=== PATIENT | female | born 1970 ===

== ENCOUNTER 2024-08-14 08:28 | Outpatient (AMB) | payer OTHER, SELFPAY ==
--- NOTE | 2024-08-14 08:31 | A.OFFVIS_ITS ---
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 Patient was referred by [place] with MRI results of right knee. Patient reports she tripped over a breakfast tray as she was entering her classroom, causing her to fall and injuring her right knee and right shoulder. She attended PT which caused an increase of swelling. Her pain is located at the lateral side and below her kneecap. Denies numbness or tingling. Difficulty with stair use and swelling presents with activity. She continues to work with current restrictions: limited movement, allow her to sit, she is unable to lift anything over 5 lbs, no prolong computer use, and no stairs. MRI of right knee shows: 1. Poorly organized meniscal tearing of the body and posterior horn and medial meniscus with a probable superior medially subluxed meniscal fragment.- At least partly age related due to osteophytes below 2 There is smaller to severe chondromalacia of the medial compartmental cartilage with prominent medial osteophytes 3. Grade 1 MCL sprain- probably industrial but minor 4. Focal fissuring and chondromalacia of the patella cartilage apex.- Possibly industrial but lacks medial correction. Allergies acetaminophen [From Percocet] Allergy (Verified 08/14/24 08:51) Itchy oxycodone [From OxyContin] Allergy (Verified 08/14/24 08:51) itchy lavendar Allergy (Uncoded 08/14/24 08:51) headaches Medication List - Last Reconciled 08/14/24 by Justina Orr PA-C amlodipine 10 mg PO DAILY cyclobenzaprine 10 mg PO BEDTIME diclofenac sodium 75 mg PO BID escitalopram oxalate mg PO hydrochlorothiazide 25 mg PO DAILY meclizine 25 mg PO Q12H PRN HPI HPI DONATION SPECIALIST- Right knee injury DOI 04/25/24: Details: 53-year-old female presents to the office today for an injury she sustained to her right knee during a workman's comp injury on 04/25/2024. She was at work and tripped over a bag with handles and as she was walking she caught her foot on the handle and fell landing on her right side injuring the right shoulder and right knee. She needed assistance getting off the floor and was brought to the ED by her son. She was seen at [facility] who sent her to PT and she was attending but began developing swelling. She c/o locking sensation and pain with stairs. She states the pain travels around the knee. No sensation of instability. Prior to the injury she has been able to perform all activities without limitations. Since the time of the injury she has been working with limitations such as sitting. 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 No open wounds or abrasions. No joint effusion. She has full range of motion with significant crepitus over the lateral aspect of the knee. She has medial-sided joint tenderness with a positive Elisabeth's. Calf supple and nontender neurovascularly intact. Office Procedures AMB Joint Injection/Aspiration Joint Injection/Aspiration Primary Site: right knee Prep: site was prepped using aseptic technique, ethochloride spray was applied and injection warnings given Injected: 80 mg of, DepoMedrol, with 8 mL of, 1% plain lidocaine and in the joint Approach Used: anterolateral Procedure: The patient tolerated the procedure well and there was some relief with the local anesthesia Coding 30443 - Glenohumeral/Tronchanteric Bursa/Intraarticular Procedure code (CPT) selection complete Results Reviewed Results Reviewed: X-rays of the right knee obtained in the office today and reviewed by me show medial compartment and patellofemoral compartment arthritis Assessment & Plan Assessment & Plan (1) Patellofemoral arthritis of right knee: Code(s): M17.11 - Unilateral primary osteoarthritis, right knee Category: Medical (2) Tear of meniscus of right knee as current injury: Code(s): S83.206A - Unspecified tear of unspecified meniscus, current injury, right knee, initial encounter Category: Medical Plan It appears as though she has an acute on chronic injury of the right knee. She was performing all activities without discomfort or limitations prior to her injury and now she is limited with activities that cause her discomfort. At this time I recommend a steroid injection in the right knee which she tolerated well. This will help with her pain and inflammation allowing her to perform physical therapy to work on strengthening exercises. While her MRI does show a meniscus tear this may be an acute on chronic tear given she is symptomatic and prior to injury she was not. She was given a prescription for Celebrex to take twice a day for 2 weeks to help with her discomfort. I would like to see her back in 8 weeks for re-evaluation. She will continue her current work limitations of alternate sitting to standing as needed and limit stair climbing as needed. Orders: Orders XR knee RT 3V Today M17.11 - Unilateral primary osteoarthritis, right knee Medications: New celecoxib (Celebrex) 200 mg PO BID 60 caps 3RF 30 days Coding Level of Care Code New Pt Level 3 (20349) Complex EM visit Add On G2211 Diagnoses Patellofemoral arthritis of right knee M17.11 Tear of meniscus of right knee as current injury S83.206A CPT Codes Coding - Joint 7: 06731 - Glenohumeral/Tronchanteric Bursa/Intraarticular ([id number])
--- OUTSIDE RECORDS SUMMARY | 2024-08-14 08:44 | XMS_ITS | Data Portability ---
Author Organization [place] - [facility], Allergy Address [address] [address] Care Team Providers Care Data Modeling Architect Name Role Phone PASQUALE NOVAK Primary Care Provider Assessment No assessment recorded. Plan of Treatment Reminders Order Date Submit Date Provider Last Modified By Organization Details Last Modified Time Details Appointments None recorded. Lab None recorded. Referral None recorded. Procedures None recorded. Surgeries None recorded. Imaging MRI, brain + internal auditory canal, w/wo contrast - MRI, BRAIN + INTERNAL AUDITORY CANAL, W/WO CONTRAST 2023 024 [email or web address] [facility] ([facility]), [address] [place], [address], 5 11:24:43 Medication Orders None recorded. Patient TargetsNo targets recorded. Patient InstructionsNo instructions recorded. Reason for Referral None Reported. Results Created Date Observation Date Name Description Value Unit Range Abnormal Flag Note LastModifiedBy Organization Detail LastModifiedTime 03/22/20 24 audio gram No observ ation record ed. BARCODE Not Available 2023 12:17:12 Result Notes None recorded. Problems Name Problem SNOMED Code Status Onset Date Resolution Date Notes Provider Name and Address Organization Details Recorded Time Benign paroxysma l positiona l vertigo 413961068 Active 2016 Benign paroxysma l vertigo, left ear; Note: Date Diagnosed : 08/30/2016 3:32 PM (H81.12) Not Available [facility] 4 02:40:28 Dizziness and giddiness 600525889 Active 2016 Dizziness and giddiness ; Note: Date Diagnosed : 08/30/2016 3:29 PM (R42) Not Available [facility] 4 02:40:25 Sensorine ural hearing loss of bilateral ears 727935287 Active 2016 Sensorine ural hearing loss, bilateral ; Note: Date Diagnosed : 08/30/2016 3:29 PM (H90.3) Not Available [facility] 4 02:40:21 Bilateral tinnitus 91248688739 02 Active 2016 Tinnitus, bilateral ; Note: Date Diagnosed : 08/30/2016 3:29 PM (H93.13) Not Available [facility] 4 02:40:21 Sensorine ural hearing loss in left ear 61563244174 109 Active 2023 Kezia mathis [place] - [facility] 4 14:01:30 Tinnitus of left ear 04742729421 06 Active 2023 JYOTHI COLON MD [address] [place] [address],[place] [address], [place], [address] , [place] - [facility] 4 14:55:42 Referred otalgia of left ear 49592339527 52827 Active 2023 JYOTHI COLON MD [address] [place] [address],[place] [address], [place], [address] , [place] - [facility] 4 14:56:16 Problem Notes None recorded. Procedures Surgical History Date Name Laterality Status Provider Name and Address Organization Details Recorded Time 03/21/20 24 Air & Speech Audio with Tymps - 55042, 53967 & 88286 completed Kezia Jara [place] - [facility] 03/21/2024 14:00:59 biopsy of ovary completed Elodia Winston [place] - [facility] 03/21/2024 14:26:29 section completed Elodia Winston [place] - [facility] 03/21/2024 14:26:35 Hysterectomy completed Elodia Winston [place] - [facility] 03/21/2024 14:26:41 Imaging Results Imaging Date Name Status LastModified by Organiz ation Details LastModified Time 03/22/2024 audiogram completed BAR[facility] Information no t available 03/22/2024 12:17:12 Procedure Notes None recorded. Medical Equipment None Reported. Allergies Allergen ID Allergen Name Allergen Category Reaction Reaction Severity Criticality Documentation Date Start Date Code Code System Note Provider Name and Address Organization Details Recorded Time 148567 amoxicill in medicatio n Not available Not available Not available 03/21/2024 723 RxNorm Elodia mathis [facility] 4 14:27:38 013871 Keflex medicatio n Not available Not available Not available 03/21/2024 17709 7 RxNorm Elodia mathis [facility] 4 14:27:43 299209 acetamino phen / oxycodone medicatio n Not available Not available Not available 03/21/2024 79360 3 RxNorm Elodia mathis [facility] 4 14:27:49 294504 vitamin B12 medicatio n Not available Not available Not available 03/21/2024 27984 RxNorm Elodia mathis [facility] 4 14:27:55 Medications Name Sig Start Date Stop Date Status Note LastModified by Organization Details LastModified Time azithromycin 250 mg tablet TAKE 2 TABLETS BY MOUTH TODAY, THEN TAKE 1 TABLET DAILY FOR 4 DAYS DIRECTED active Not Available Not Available No t Available doxycycline monohydrate 100 mg tablet TAKE 1 TABLET BY MOUTH TWICE A DAY FOR 10 DAYS active Not Available Not Available No t Available meclizine 25 mg tablet TAKE 1 TABLET BY MOUTH EVERY 12 HOURS NEEDED FOR 30 DAYS active Not Available Not Available No t Available amlodipine 10 mg tablet TAKE 1 TABLET BY MOUTH EVERY DAY FOR 90 DAYS active Not Available Not Available No t Available lisinopril 5 mg tablet TAKE 1 TABLET BY MOUTH EVERY DAY FOR 90 DAYS active Not Available Not Available No t Available hydrochlorothi azide 25 mg tablet TAKE 1 TABLET BY MOUTH EVERY DAY FOR 90 DAYS active Not Available Not Available No t Available methylpredniso lone 4 mg tablets in a dose pack TAKE 6 TABLETS ON DAY 1 DIRECTED ON PACKAGE AND DECREASE BY 1 TAB EACH DAY FOR A TOTAL OF 6 DAYS active Not Available Not Available No t Available escitalopram 10 mg tablet TAKE 1 & 1/2 TABLETS BY MOUTH DAILY active Not Available Not Available No t Available Vitals Date Recorded Body height Body weight Provider Name and Address Organization Details Last Updated DateTime 03/21/2024 149.86 cm 23186.59 g Elodia Winston [place] - [facility] 03/21/2024 14:42:33 Social History None recorded. Functional Status None recorded. Mental Status None recorded. Family History Nothing Reported. Medical History Condition Response Anxiety Y Hypertension Y Depression Y Gynecological HistoryNo gynecological history recorded. Obstetrics History GPAL:G 0 P 0 0 0 0 Past Encounters Encounter ID Performer Location Encounter Start Date Encounter Closed Date Diagnosis/Indication Diagnosis SNOMED-CT Code Diagnosis ICD10 Code Diagnosis Note [id number] JYOTHI COLON MD [facility] [address] [place] [address] 03/21/2024 13:27:27 03/21/2024 14:58:41 Sensorineural hearing loss in left ear [id number] 9109 H90.42 Audiologic al evaluation results:Ri t ear:{{Norm al* Normal through 2 kHz Mild M oderate Mo derately-s evere Gianna re Profoun d}} {{hearing* hearing. sloping to a mild slopi ng to a moderate s loping to moderately severe slo ping to severe slo ping to profound f lat high frequency low frequency mid frequency cookie bite berry curve}} {{with* se nsorineura l hearing loss with condu ctive hearing loss with mixed hearing loss with}} {{excellen t* good fa ir poor no measurable }} word recognitio n.Left ear:{{Norm al Normal through 2 kHz Mild M oderate Mo derately-s evere Gianna re Profoun d Normal through 4 kHz#}} {{hearing hearing. s loping to a mild slopi ng to a moderate* sloping to moderately severe slo ping to severe slo ping to profound f lat high frequency low frequency mid frequency cookie bite berry curve}} {{with sen sorineural hearing loss with* cond uctive hearing loss with mixed hearing loss with}} {{excellen t* good fa ir poor no measurable }} word recognitio n. Tympanomet ry:Right Ear:{{Type A* Type As Type Ad Type C Type C, shallow & rounded Ty pe B Type B with large volume Cou ld not maintain a hermetic seal}}Left Ear:{{Type A Type As* Type Ad Type C Type C, shallow & rounded Ty pe B Type B with large volume Cou ld not maintain a hermetic seal}}Ros ent's audiogram is demonstrat ing an asymmetric sensorineu ral hearing loss and tinnitus affecting the {{right ear greater than left left ear greater than right*}}. This is enough of an asymmetry to warrant retrocochl ear workup. Recommend MRI scan of the brain and internal auditory canals with gadolinium . We will arrange this for the patient. If the scan is negative I will let the patient know via {{telephon e message po rtal massage*}} . If there are any significan t abnormalit ies, we can arrange telehealth visit to discuss the results. Tinnitus of left ear 406 7041600 106 H93.12 Referred o talgia of left ear [id number] 637897 H92.02 M26.622 M79.11 The patient complains of intermitte nt {{right-si ded left-s ided* bila teral}} periauricu lar {{discomfo rt* pressu re sensation} }. Physical exam reveals no identifiab le source of these symptoms involving the auricle, external auditory canal, or tympanic membrane. Audiometri c testing and tympanomet ry are similarly unrevealin g. Furthermor e, examinatio n was positive for crepitus and tenderness of the {{right le ft* bilate ral}} jaw joint and fer-TMJ musculatur e. The patient's periauricu lar {{discomfo rt* pressu re sensation} } is most likely consistent with intermitte nt inflammati on of the jaw joint or spasm of the surroundin g musculatur e. This is likely exacerbate d by the {{missing teeth* den margret clenching and grinding g um chewing}} . I recommende d the patient use light massage, warm compresses and anti-infla mmatories for symptomati c management . Stressed chewing evenly on both sides of the mouth to keep from overworkin g the jaw joint. Use soft food diet as needed. Jaw Joint Program informatio n sheet was shared. If this treatment plan is ineffectiv e, recommend follow up with their dentist. Referral to physical therapist who specialize s in TMJ disorders {{could also be considered * was provided}} . Health Concerns Section Related Observation LastModified by Organization Detai ls LastModified Time None Recorded Concern Status LastModified by Organization Details LastModified Time None Recorded Advance Directives Directive None Recorded Payers Insurance Date Sequence Insurance Name Policy Number Policy Kirkpatrick Covered Member ID Kirkpatrick Member ID Guarantor Name 03/21/[address] [place] [address] [id number] Shanta Zeng [id number] Shanta Zeng Notes Date Note Type Note Provider Name and Address Organization Details Recorded Time 03/21/2024 text/html Patient comes in today for evaluation of left periauricular pain. She has been having symptoms for about a month. Pain is in the preauricular area but can also go up into her temporal region as well as down into the jawline and neck. It is better now than what it was a month ago. Patient notes that her symptoms wax and wane, and can be exacerbated by talking and chewing. No discharge or bleeding from the ear. Patient was seen at her primary care physician's office and given 2 courses of antibiotics. Unfortunately she had nausea and vomiting with some of the antibiotics. She was given a third course of antibiotics but she has not taken it.Patient was seen in our office back in 2017. She had audiometric testing showing a mildly asymmetric sensorineural hearing loss affecting the left ear greater than right. It was not enough asymmetry at that point to warrant retrocochlear workup. She has asymmetric tinnitus affecting the left ear greater than right JYOTHI COLON MD [address] [place] [address], [phone], [facility] - [facility] 03/21/2024 14:58:58 OBGyn Episode No OBEpisode recorded.
--- OUTSIDE RECORDS SUMMARY | 2024-08-14 08:44 | XMS_ITS | Clinical Summary ---
Author Organization [facility] [address] [facility] Address [address] [place] [address] Phone Care Team Providers Care Sales Expert Name Role Phone Kelechi Haney Primary Care Provider [phone] Allergies Active Allergy Reactions Criticality Noted Date Comments Amoxicillin 06/19/2024 Cyanocobalamin (Vitamin B12) 025 Cephalexin 06/19/2024 Oxycodone-Acetaminophen 06/19/2024 Medications escitalopram (LEXAPRO) 10 mg tablet 06/06/2024 Active hydroCHLOROthiazid e (HYDRODIURIL) 25 mg tablet 06/06/2024 Active lisinopriL (PRINIVIL,ZESTRIL) 5 mg tablet 06/06/2024 Active amLODIPine (NORVASC) 10 mg tablet 06/06/2024 Active Encounters Date Type Department Care Team Description 06/19/2024 Telephone Gastroenterology - [address] [phone] Anastasiia Yeboah MD from Last 3 Months Social History Tobacco Use Types Packs/Day Years Used Date Smoking Tobacco: Never Assessed Comments Unknown Sex and Gender Information Value Date Recorded Sex Assigned at Not on file Legal Sex Female 3:44 PM EDT Gender Identity Not on file Sexual Orientation Not on file Plan of Treatment Upcoming Encounters Date Type Department Care Team (Late st Contact Info) Description 09/18/2024 8:00 AM EDT Appointment [facility] [address] [place] [address] Momo Bautista MD [address] [id number] Health Maintenance Due Date Last Done Comments Breast Cancer Screening 1968 DTaP,Tdap,and Td Vaccines (1 - Tdap) 01/01/1988 Hepatitis B Vaccines (1 of 3 - 19+ 3-dose series) 01/01/1988 Cervical Cancer Screening: P ap Smear 1989 Pneumococcal Vaccine: 50+ Ye ars (1 of 1 - PCV) 2018 Zoster Vaccines (1 of 2) 2018 COVID-19 Vaccine ( - 2023-2 5 season) 2023 Colorectal Cancer Screening: Colonoscopy 01/24/2024 Depression Screening 01/24/2024 HIV Screening 01/24/2024 Hepatitis C Screening 01/24/2024 Social Influencers of Health Screening 01/24/2024 Influenza Vaccine (Season Ended) 2024 HIB Vaccines Aged Out No longer eligi ble based on patient's age to complete this topic HPV Vaccines Aged Out No longer eligi ble based on patient's age to complete this topic Hepatitis A Vaccines Aged Out No long er eligible based on patient's age to complete this topic IPV Vaccines Aged Out No longer eligi ble based on patient's age to complete this topic MMR Vaccines Aged Out No longer eligi ble based on patient's age to complete this topic Meningococcal ACWY Vaccine Aged Out N o longer eligible based on patient's age to complete this topic Meningococcal B Vaccine Aged Out No l onger eligible based on patient's age to complete this topic Pneumococcal Vaccine: Pediat rics (0 to 5 Years) and At-Risk Patients (6 to 64 Years) Aged Out No longer eligible b ased on patient's age to complete this topic RSV Immunization Patients Un tree 20 months Aged Out No longer eligible b ased on patient's age to complete this topic Varicella Vaccines Aged Out No longer eligible based on patient's age to complete this topic Insurance Care Teams Sales Expert Relationship Specialty Start Date End Date Kelechi Haney PA PCP - General Internal Medicine 06/19/24
[2024-08-14 08:53] VITALS: BMI 35.5
== END 2024-08-14 09:58 | disposition home or self-care (01) ==
LOC: HO.HOS 08:29
PROVIDERS: Visit Provider Physician Assistant
DX: M17.11 Unilateral primary osteoarthritis, right knee (principal); S83.203A Other tear of unspecified meniscus, current injury, right knee, initial encounter
CPT/HCPCS: 20610; 99203

== ENCOUNTER → 2024-08-14 08:31 | Outpatient (BNV) | payer OTHER, SELFPAY | PROVIDERS: Visit Provider Radiology Diagnostic Radiology | DX: M17.11 Unilateral primary osteoarthritis, right knee (principal) | CPT/HCPCS: 73562 ==

== ENCOUNTER 2024-08-14 09:27 | Outpatient (REF) | payer OTHER, SELFPAY ==
--- NOTE | ~2024-08-14 | XR_ITS ---
CLINICAL HISTORY: M17.11 - Unilateral primary osteoarthritis, right knee AP standing view bilateral knees Two-view right knee Comparison: None Findings: Bones intact. No dislocations. Moderate narrowing of the right medial knee compartment. Mild narrowing of the left medial knee compartment. Osteophytes are present within the bilateral knees, most pronounced within the right medial knee compartment. There is a mild leg length discrepancy. The right medial tibial plateau is 1 cm superior to the left. No joint effusion. No radiopaque foreign body. IMPRESSION: 1. Moderate osteoarthritis of the right knee. Mild osteoarthritis of the left knee. 2. Mild leg length discrepancy. This document has been electronically signed by: Vivien Murrieta MD on 08/14/2024 14:33:35
--- OUTSIDE RECORDS SUMMARY | 2024-08-15 10:09 | XMS_ITS | Clinical Summary ---
Author Organization [facility] 299 [facility] Address [address] [place] [address] Phone Care Team Providers Care Crime Victim Specialist Name Role Phone Kelechi Haney Primary Care Provider [phone] Allergies Active Allergy Reactions Criticality Noted Date Comments Amoxicillin 06/19/2024 Cyanocobalamin (Vitamin B12) 025 Cephalexin 06/19/2024 Oxycodone-Acetaminophen 06/19/2024 Medications escitalopram (LEXAPRO) 10 mg tablet 06/06/2024 Active hydroCHLOROthiazid e (HYDRODIURIL) 25 mg tablet 06/06/2024 Active lisinopriL (PRINIVIL,ZESTRIL) 5 mg tablet 06/06/2024 Active amLODIPine (NORVASC) 10 mg tablet 06/06/2024 Active Encounters Date Type Department Care Team Description 06/19/2024 Telephone Gastroenterology - [address] [phone] Anastasiia Ybeoah MD from Last 3 Months Social History [...] Info) Description 09/18/2024 8:00 AM EDT Appointment [facility]oscopy [address] [place] [address] Momo Bautista MD [address] [phone] Health Maintenance Due Date Last Done Comments [...] to complete this topic Insurance Care Teams Crime Victim Specialist Relationship Specialty Start Date End Date Kelechi Haney PA PCP - General Internal Medicine 06/19/24
== END 2024-08-14 09:28 | disposition home or self-care (01) ==
LOC: HO.HOSX 09:27
PROVIDERS: Visit Provider Physician Assistant
DX: M17.11 Unilateral primary osteoarthritis, right knee (principal); S83.206A Unspecified tear of unspecified meniscus, current injury, right knee, initial encounter
CPT/HCPCS: 20610; 73562; 99202; J1010; J2003

== ENCOUNTER 2024-10-08 15:07 | Outpatient (AMB) | payer OTHER, SELFPAY ==
--- NOTE | 2024-10-08 15:09 | MHC.OFFVIS ---
Intake Visit Reasons: OV-Right knee injury WC DOI 04/25/24 Intake Note: Shanta 53 yr old female presents today for her right knee W/C injury follow up visit from DOI 04/25/24. States last injection from DOS 08/14/24 provided relief and would like to repeat injection 3 moths from last one. Allergies acetaminophen (From Percocet) Allergy (Verified 10/08/24 15:14) Itchy oxycodone (From OxyContin) Allergy (Verified 10/08/24 15:14) itchy lavendar Allergy (Uncoded 10/08/24 15:14) headaches Medication List - Last Reconciled 10/08/24 by Justina Orr PA-C amlodipine 10 mg PO DAILY celecoxib (Celebrex) 200 mg PO BID 30 days cyclobenzaprine 10 mg PO BEDTIME diclofenac sodium 75 mg PO BID escitalopram oxalate mg PO hydrochlorothiazide 25 mg PO DAILY meclizine 25 mg PO Q12H PRN HPI HPI OV-Right knee injury DOI 04/25/24: Details: 53-year-old female returns to the office today for a follow-up right knee status post injection. She states she has been working with physical therapy and she has noticed some improvement in her symptoms and daily activities. She does have some occasional discomfort in the knee but overall improving. 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 No open wounds or abrasions. No joint effusion. She has full range of motion with significant crepitus over the lateral aspect of the knee. Mild discomfort with patellar grind. Calf supple and nontender neurovascularly intact. Assessment & Plan Assessment & Plan (1) Patellofemoral arthritis of right knee: Code(s): M17.11 - Unilateral primary osteoarthritis, right knee Category: Medical (2) Tear of meniscus of right knee as current injury: Code(s): S83.206A - Unspecified tear of unspecified meniscus, current injury, right knee, initial encounter Category: Medical Plan I reassured the patient the injection was used to help reduce the inflammation so she could begin physical therapy and have positive results. I am optimistic she will continue to improve with physical therapy. I did give her a prescription for ibuprofen 800 mg to take 3 times a day for the next 2 weeks to help with acute flare-ups. She will see me back in 8 weeks to re-evaluate, sooner if needed. Coding Level of Care Code Est Pt Level 3 (42879) Complex EM visit Add On G2211 Diagnoses Patellofemoral arthritis of right knee M17.11 Tear of meniscus of right knee as current injury S83.206A
--- OUTSIDE RECORDS SUMMARY | 2024-10-08 15:48 | XMS_ITS | Clinical Summary ---
Author Organization [address] Address [address] [place] [address] Phone Care Team Providers Care Senior Net Software Developer Name Role Phone Kelechi Haney Primary Care Provider [phone] Allergies Active Allergy Reactions Criticality Noted Date Comments Amoxicillin 06/19/2024 Cyanocobalamin (Vitamin B12) 025 Cephalexin 06/19/2024 Oxycodone-Acetaminophen 06/19/2024 Medications escitalopram (LEXAPRO) 10 mg tablet 5 Active hydroCHLOROthia zide (HYDRODIURIL) 25 mg tablet 5 Active lisinopriL (PRINIVIL,ZESTR IL) 5 mg tablet 5 Active amLODIPine (NORVASC) 10 mg tablet 5 Active polyethylene glycol (Golytely) 236-22.74-6.74 -5.86 gram solution Take 4L by mouth once for one dose. May substitue any PEG. Starting at 6PM the night before your procedure drink 1 8oz glasses at your own pace until you complete half of the gallon. Finish 2nd half of the gallon 5 hours before your procedure. 4000 mL 5 Active bisacodyL (DULCOLAX) 5 mg EC tablet Take 2 tablets by mouth right before beginning bowel prep. See instructions provided by the office 2 tablet 5 Active Encounters Date Type Department Care Team Description 09/17/2024 Telephone Gastroenterology - [address] [place] [address] Momo Bautista MD Special Procedure R/S from Last 3 Months Social History Tobacco Use Types Packs/Day Years Used Date Smoking Tobacco: Never Assessed Comments Unknown Sex and Gender Information Value Date Recorded Sex Assigned at Not on file Legal Sex Female 3:44 PM EDT Gender Identity Not on file Sexual Orientation Not on file Plan of Treatment Upcoming Encounters Date Type Department Care Team ([facility] st Contact Info) Description 11/18/2024 2:[address] [facility] [address] [place] [id number] Momo Bautista MD [address] [facility] [address] [place] [address] Health Maintenance Due Date Last Done Comments Breast Cancer Screening 1968 DTaP,Tdap,and Td Vaccines (1 - Tdap) 01/01/1988 Hepatitis B Vaccines (1 of 3 - 19+ 3-dose series) 01/01/1988 Cervical Cancer Screening: P ap Smear 1989 Pneumococcal Vaccine: 50+ Ye ars (1 of 1 - PCV) 2018 Zoster Vaccines (1 of 2) 2018 COVID-19 Vaccine (2023-2 5 season) 2023 Colorectal Cancer Screening: Colonoscopy [...] 5 Years) and At-Risk Patients (6 to 49 Years) Aged Out No longer eligible b ased on patient's age to complete this topic RSV Immunization Patients Un tree 20 months Aged Out No longer eligible b ased on patient's age to complete this topic Varicella Vaccines Aged Out No longer eligible based on patient's age to complete this topic Insurance [facility] Care Teams Senior Net Software Developer Relationship Specialty Start Date End Date Kelechi Haney PA PCP - General Internal Medicine 06/19/24
--- OUTSIDE RECORDS SUMMARY | 2024-10-08 15:48 | XMS_ITS | Data Portability ---
Author Organization [place] - [facility], All[facility] Address [address] [address] Care Team Providers Care Medical Writer Name Role Phone PASQUALE NOVAK Primary Care [...] INTERNAL AUDITORY CANAL, W/WO CONTRAST 2023 024 [email or web address] [facility] ([facility]), [address] [place], [address], 5 11:24:43 Medication Orders None recorded. Patient [...] Time Benign paroxysma l positiona l vertigo 591530377 Active 2016 Benign paroxysma l vertigo, left ear; Note: Date Diagnosed : 08/30/2016 3:32 PM (H81.12) Not Available [facility] 4 02:40:28 Dizziness and giddiness 889553702 Active 2016 Dizziness and giddiness ; Note: Date Diagnosed : 08/30/2016 3:29 PM (R42) Not Available [facility] 4 02:40:25 Sensorine ural hearing loss of bilateral ears 216599192 Active 2016 Sensorine ural hearing loss, bilateral ; Note: Date Diagnosed : 08/30/2016 3:29 PM (H90.3) Not Available [facility] 4 02:40:21 Bilateral tinnitus 54244268006 02 Active 2016 Tinnitus, bilateral ; Note: Date Diagnosed : 08/30/2016 3:29 PM (H93.13) Not Available [facility] 4 02:40:21 Sensorine ural hearing loss in left ear 44125585036 109 Active 2023 Kezia mathis [place] - [facility] 4 14:01:30 Tinnitus of left ear 63465818497 06 Active 2023 JYOTHI COLON MD [address] [place] [address],[place] [address], [place], [address] , [place] - [facility] 4 14:55:42 Referred otalgia of left ear 34709781032 71898 Active 2023 JYOTHI COLON MD [address] [place] [address],[place] [address], [place], [address] , [place] - [facility] 4 14:56:16 Problem Notes None recorded. Procedures Surgical History Date Name Laterality Status Provider Name and Address Organization Details Recorded Time 03/21/20 24 Air & Speech Audio with Tymps - 14069, 78256 & 48215 completed Kezia Jara [place] - [facility] 03/21/2024 14:00:59 biopsy of ovary completed Elodia Winston [place] - [facility] 03/21/2024 14:26:29 section completed Elodia Winston [place] - [facility] 03/21/2024 14:26:35 Hysterectomy completed Elodia Winston [place] - [facility] 03/21/2024 14:26:41 Imaging Results None recorded. Procedure Notes None recorded. Medical Equipment None Reported. Allergies Allergen ID Allergen Name Allergen Category Reaction Reaction Severity Criticality Documentation Date Start Date Code Code System Note Provider Name and Address Organization Details Recorded Time 545216 amoxicill in medicatio n Not available Not available Not available 03/21/2024 723 RxNorm Elodia mathis, [place] - [facility] 4 14:27:38 782240 Keflex medicatio n Not available Not available Not available 03/21/2024 45350 7 RxNorm Elodia mathis, [place] - [facility] 4 14:27:43 629363 acetamino phen / oxycodone medicatio n Not available Not available Not available 03/21/2024 55702 3 RxNorm Elodia mathis, [place] - [facility] 4 14:27:49 392496 vitamin B12 medicatio n Not available Not available Not available 03/21/2024 75069 RxNorm Elodia mathis, [place] - [facility] 4 14:27:55 Medications Name Sig Start Date [...] Details Last Updated DateTime 03/21/2024 149.86 cm 94741.59 g Elodia Winston [place] - [facility] 03/21/2024 14:42:33 Social History None recorded. Functional Status None recorded. Mental Status None recorded. Family History Nothing Reported. Medical History Condition Response Depression Y Anxiety Y Hypertension Y Gynecological HistoryNo gynecological history recorded. Obstetrics History GPAL:G 0 P 0 0 0 0 Past Encounters Encounter ID Performer Location Encounter Start Date Encounter Closed Date Diagnosis/Indication Diagnosis SNOMED-CT Code Diagnosis ICD10 Code Diagnosis Note [id number] JYOTHI COLON MD [facility] [address] [address] 03/21/2024 13:27:27 03/21/2024 14:58:41 Sensorineural hearing loss in left ear [id number] 9109 H90.42 Audiologic al evaluation results:Ri ght ear:Normal hearing with excellent word recognitio n.Left ear:Normal through 4 kHz sloping to a moderate sensorineu ral hearing loss with excellent word recognitio n. Tympanomet ry:Right Ear:Type ALeft Ear:Type AsPatient' s audiogram is demonstrat ing an asymmetric sensorineu ral hearing loss and tinnitus affecting the left ear greater than right. This is enough of an asymmetry to warrant retrocochl ear workup. Recommend MRI scan of the brain and internal auditory canals with gadolinium . We will arrange this for the patient. If the scan is negative I will let the patient know via portal massage. If there are any significan t abnormalit ies, we can arrange telehealth visit to discuss the results. Tinnitus of left ear 008 5627920 106 H93.12 Referred o talgia of left ear 5227071268 707457 H92.02 M26.622 M79.11 The patient complains of intermitte nt left-sided periauricu lar discomfort . Physical exam reveals no identifiab le source of these symptoms involving the auricle, external auditory canal, or tympanic membrane. Audiometri c testing and tympanomet ry are similarly unrevealin g. Furthermor e, examinatio n was positive for crepitus and tenderness of the left jaw joint and fer-TMJ musculatur e. The patient's periauricu lar discomfort is most likely consistent with intermitte nt inflammati on of the jaw joint or spasm of the surroundin g musculatur e. This is likely exacerbate d by the missing teeth . I recommende d the patient use [...] therapist who specialize s in TMJ disorders could also be considered . Health Concerns Section Related Observation LastModified by Organization Detai ls LastModified Time None Recorded Concern Status LastModified by Organization Details LastModified Time None Recorded Advance Directives Directive None Recorded Payers Insurance Date Sequence Insurance Name Policy Number Policy Kirkpatrick Covered Member ID Kirkpatrick Member ID Guarantor Name 03/21/2024 1 [facility] [id number] 01 Shanta Zeng [id number] Shanta Zeng Notes Date Note Type Note [...] ear greater than right JYOTHI COLON MD [address] [place] [address], [place], [address], [facility] - [facility] 03/21/2024 14:58:58 OBGyn Episode No OBEpisode recorded.
== END 2024-10-08 15:33 | disposition home or self-care (01) ==
LOC: HO.HOS 15:08
PROVIDERS: Visit Provider Physician Assistant
DX: M17.11 Unilateral primary osteoarthritis, right knee (principal); S83.206A Unspecified tear of unspecified meniscus, current injury, right knee, initial encounter
CPT/HCPCS: 99213; G2211

== ENCOUNTER → 2024-10-08 15:07 | Outpatient (BNVA) | payer OTHER, SELFPAY | PROVIDERS: Visit Provider Physician Assistant | DX: Z04.2 Encounter for examination and observation following work accident (principal); M17.11 Unilateral primary osteoarthritis, right knee; S83.206A Unspecified tear of unspecified meniscus, current injury, right knee, initial encounter; X58.XXXA Exposure to other specified factors, initial encounter; Y93.9 Activity, unspecified; Y92.9 Unspecified place or not applicable; Y99.9 Unspecified external cause status | CPT/HCPCS: 99212 ==

== ENCOUNTER 2024-11-01 11:00 | Outpatient (RCR) | payer OTHER, SELFPAY ==
--- NOTE | 2024-09-27 15:04 | MHC.PT.EP ---
[facility] [place] Office [place] Office [place] Office [address] Alicja Haile [address] [phone] F: [phone] F: [phone] F: [phone] F: [phone] Physical Therapy Plan of Care Date of Evaluation: 09/27/24 Date of Surgery: Diagnosis: M17.11 Unilateral Primary OA, R knee, S83. 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 206A Unspecified tear of unspecified meniscus, current injury, right knee, initial encounter, Patellofemoral arthritis of R knee, tear of meniscus of right knee, as current injury, signed by COTY Orr 08/14/24 following history of fall with work related injury DOI 04/25/24. Pt had an orthopedic consult on 08/14/24, had xray>MRI, and received a knee injection with some reduction post injection reported. She notes was given a hinged knee brace (did not wear and has not been wearing all the time)- advised to bring next session. Pt AROM -5 to 100 degrees R knee. Poor SLR, poor tolerance for quad set, poor tolerance for R SL. Pt currently exhibiting antalgic gaiit, notes pain 0/10 sitting during subjective goes up as high as R knee 9/10 medial side of knee, intolerance for stairs (step to pattern), sleeping, walking, sitting, and driving. Pt will be seen in PT 2-3x/week for treatment of R knee x 4-6 weeks. Post initial she was educated re: ascending with L LE, descending with R LE to reduce stress which eased her sx, educated re: passive heel prop for knee extension aide, and benefits in ice for R knee. Pt notes no follow up for treatment of R shoulder at this time (states she called ortho and was given appt for 11/09/24 R knee and R shoulder sometime in November. Pt was not referred to PT for treatment of her shoulder at this time. Pt verbalized good carryover following education at time of evaluation. Frequency and Duration: The patient will be seen 2-3x/week x 4-6 weeks Short Term Goals: 1. Initiate HEP program. 2. Pt will initiate R knee extension to 0 degrees. 3. Pt will demonstrate R knee flexion to 120 degrees. 4. Pt will ascend/descend stairs step to with good dynamic balance. Residential Goals: 1. I HEP with good mechanics for self-care. 2. Pt will demonstrate strength R knee 5/5 globally. 3. Pt will ascend/descend stairs with good dynamic balance. 4. Pt will RTW with good joint protections/insight for HEP. 5. Pt will implement a walking routine with no evidence of knee instability. Treatment Plan: Modalities to reduce pain, spasms and effusion. Manual therapy to restore motion and function. Therapeutic exercise to improve strength and flexibility. Neuromuscular re-education for posture and balance. Therapeutic activities to return to functional activities of daily living. Electronically signed by: Diana Gutierrez, PT, DPT Please sign and return to therapist. Thank you for your referral.
--- NOTE | 2024-11-01 12:15 | MHC.PT.OD ---
[facility] [place] Office [place] Office [place] Office [address] Alicja Haile [address] [phone] F: [phone] F: [phone] F: [phone] F: [phone] Physical Therapy Daily Note Diagnosis: M17.11 Unilateral Primary OA, R knee, S83. 206A Unspecified tear of unspecfied meniscus, current injury, right knee, initial encounter, Patellofemoral arthritis of R knee, tear of meniscus of right knee, as current injury, signed by COTY Orr 08/14/24 Date of Surgery: Date of Evaluation: 09/27/24 Date of Treatment: 11/01/24 Treatments to Date: Cancellations to Date: No Shows to Date: Authorized Visits: 7 Insurance End Date: Precautions/ Contraindications:HTN Subjective: Pt cancelled appt earlier in the week, LM stating she was sick. Presents to the office, later stating she was not feeling it. Pt states since Monday > her R knee started killing her, not sure why. States she is unable to walk on it. Presents to office with antalgic gait no AD, no brace. Pain Score and Location: 8 R knee Objective Flowsheet: Tests & Measures AROM 60> AAROM 90 degrees flexion AROM ext -3 degrees ext Painful with bending sx MCL region L supra 41.5 cm jt line 40 cm, infra 37 cm R supra 42.0 jt line 40 cm, infra patella 38 jt line Poor tolerance for SLR, poor carryover of HEP shown Exercises Limited tolerance for NUSTEP, GENTLE FLEXION>EXT rom did ~4 minutes seat #17 then requested to stop due to sx Seated hamstring stretch in chair x 4R x 20 sec hold, isometric QS x 5 sec hold x 2 sets 10R, seated gastroc stretch, AAROM heel slides wit strap in supine reviewed to gentle tolerance, SLR into flexion x 10R (poor strength) poor tolerance for CKC task, poor AROM into knee extension. Passive knee ext with towel roll at end of session with ice. Encouragement to keep using ice and stretching, medication as prescribed. Modalities Assessment: 11/01/24: Pt has attended 7 sessions of PT since start of care on 09/27/24. Pt noted to cancel appt earlier in the week stating she was sick but then when presenting to the office states, I was not feeling it. Pt reports worsening R knee pain, I don't know what I did but I cant walk on it. I dont want to go back to work in pain. Pt rates her pain 8/10 today. Pt with antalgic gait, wtih limited tolerance for PT tasks. Pt scheduled for tentative appt for R knee in December. Pt also will be seen for R shoulder consultation with orthopedics next week. Pt states she will be away early next week and then leaving to travel to [place] for a week from Monday. 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 Pt currently OOW. Pt admits has not been icing her knee but notes has been taking 800mg twice daily. In general pt with limited tolerance for PT, limited HEP compliance shown through carryover of exercises. Pt advised to follow up with orthopedics re: plateaued status. Today AAROM 0 to 95, limited by pain. Pt encouraged to follow up with orthopedics due to limited gains. 10/29/24: Pt cancelled appt, sick on VM. PT Plan: Follow up with orthopedics due to limited progress/ Short Term Goals: 1. Initiate HEP program. 2. Pt will initiate R knee extension to 0 degrees. 3. Pt will demonstrate R knee flexion to 120 degrees. 4. Pt will ascend/descend stairs step to with good dynamic balance. Director Of Real Estate Goals: 1. I HEP with good mechanics for self-care. 2. Pt will demonstrate strength R knee 5/5 globally. 3. Pt will ascend/descend stairs with good dynamic balance. 4. Pt will RTW with good joint protections/insight for HEP. 5. Pt will implement a walking routine with no evidence of knee instability. Electronically signed by: Diana Gutierrez, PT, DPT
== END 2024-12-10 11:47 | disposition home or self-care (01) ==
LOC: HO.PTS 11:00
PROVIDERS: Visit Provider Physician Assistant
DX: M17.11 Unilateral primary osteoarthritis, right knee (principal); S83.206A Unspecified tear of unspecified meniscus, current injury, right knee, initial encounter
CPT/HCPCS: 97110; 97161

== ENCOUNTER 2024-11-20 08:34 | Outpatient (REF) | payer OTHER, SELFPAY ==
--- NOTE | ~2024-11-20 | XR_ITS ---
EXAMINATION: XR SHOULDER, RIGHT CLINICAL INFORMATION: M25.511 - Pain in right shoulder COMPARISON: None available. TECHNIQUE: AP external rotation, Grashey, scapular Y, and axillary views of the right shoulder. FINDINGS: Small marginal osteophyte is present involving the medial humeral head. No other degenerative changes are present. AC joint is intact. There is no dislocation. XR/XR shoulder RT min 2V IMPRESSION: Minimal degenerative change with marginal osteophyte osteophyte involving the medial humeral head. Electronically signed by: Thomas White MD 11/20/2024 09:53 AM EDT
--- OUTSIDE RECORDS SUMMARY | 2024-11-21 09:29 | XMS_ITS | Clinical Summary ---
Author Organization [facility] [address] [facility] Address [address] [place] [address] Phone Care Team Providers Care Canary Raiser Name Role Phone Kelechi Haney Primary Care Provider [phone] Allergies Active Allergy Reactions Criticality Noted Date [...] Team Description 09/17/2024 Telephone Gastroenterology - [address] [place] [address] Momo Bautista MD Special Procedure [...] patient's age to complete this topic Insurance [facility] Care Teams Canary Raiser Relationship Specialty Start Date End Date Kelechi Haney PA PCP - General Internal Medicine 06/19/24
== END 2024-11-20 08:35 | disposition home or self-care (01) ==
LOC: HO.HOSX 08:34
PROVIDERS: Visit Provider Physician Assistant
DX: M19.011 Primary osteoarthritis, right shoulder (principal); M75.81 Other shoulder lesions, right shoulder; M25.511 Pain in right shoulder; M79.89 Other specified soft tissue disorders
CPT/HCPCS: 20610; 73030; 99212; J1010; J2003

== ENCOUNTER 2024-11-20 09:40 | Outpatient (AMB) | payer OTHER, SELFPAY ==
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
[2024-11-20 09:59] VITALS: BMI 35.5
--- OUTSIDE RECORDS SUMMARY | 2024-11-20 10:29 | XMS_ITS | Clinical Summary ---
Author Organization [facility] [address] [facility] Address [address] [place] [address] Phone Care Team Providers Care Production Controller Name Role Phone Kelechi Haney Primary Care Provider [phone] Allergies Active Allergy Reactions Criticality Noted Date [...] by the office 2 tablet 5 Active polyethylene glycol (Golytely) 236-22.74-6.74 -5.86 gram solution Take 4L by mouth once for one dose. May substitue any PEG. Starting at 2PM the day before your procedure drink 1 8oz glasses at your own pace until you complete half of the gallon. Finish 2nd half of the gallon at 8PM. 4000 mL 5 Active bisacodyL (DULCOLAX) 5 mg EC tablet Take 2 tablets by mouth right before beginning bowel prep. See instructions provided by the office 2 tablet Active Encounters Date Type Department Care Team Description 09/17/2024 Telephone Gastroenterology - [address] [place] [address] Momo Bautista MD Special Procedure R/S from Last 3 Months Social History Tobacco Use Types Packs/Day Years Used Date Smoking Tobacco: Never Assessed Comments Unknown Sex and Gender Information Value Date Recorded Sex Assigned at Not on file Legal Sex Female 3:44 PM EDT Gender Identity Not on file Sexual Orientation Not on file Plan of Treatment Health Maintenance Due Date Last Done Comments [...] season) 2023 Colorectal Cancer Screening: Colonoscopy 01/24/2024 HIV Screening 01/24/2024 Hepatitis C Screening 01/24/2024 Social Influencers of Health Screening 01/24/2024 Depression Screening 04/03/2024 Influenza Vaccine (#1) 2024 HIB Vaccines Aged Out No longer [...] to complete this topic Insurance [facility] Care Teams Production Controller Relationship Specialty Start Date End Date Kelechi Haney PA PCP - General Internal Medicine 06/19/24
== END 2024-11-20 10:52 | disposition home or self-care (01) ==
LOC: HO.HOS 09:41
PROVIDERS: Visit Provider Physician Assistant
DX: M19.011 Primary osteoarthritis, right shoulder (principal); M75.81 Other shoulder lesions, right shoulder
CPT/HCPCS: 20610; 99213

== ENCOUNTER → 2024-11-20 09:42 | Outpatient (BNV) | payer OTHER, SELFPAY | PROVIDERS: Visit Provider Radiology Diagnostic Radiology | DX: M25.711 Osteophyte, right shoulder (principal) | CPT/HCPCS: 73030 ==

== ENCOUNTER 2024-11-29 11:34 | Outpatient (AMB) | payer OTHER, SELFPAY ==
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
[2024-11-29 11:42] VITALS: BMI 35.5
--- OUTSIDE RECORDS SUMMARY | 2024-11-29 12:36 | XMS_ITS | Clinical Summary ---
Author Organization [facility] 299 [facility] Address [address] [place] [address] Phone Care Team Providers Care Bluing Oven Tender Name Role Phone Kelechi Haney Primary Care Provider [phone] Allergies Active Allergy Reactions Criticality Noted Date [...] [address] [place] [address] Momo Bautista MD from Last 3 Months Social History [...] patient's age to complete this topic Insurance [facility] Care Teams Bluing Oven Tender Relationship Specialty Start Date End Date Kelechi Haney PA PCP - General Internal Medicine 06/19/24
== END 2024-11-29 12:28 | disposition home or self-care (01) ==
LOC: HO.HOS 11:34
PROVIDERS: Visit Provider Physician Assistant
DX: M17.11 Unilateral primary osteoarthritis, right knee (principal)
CPT/HCPCS: 99213; G2211

== ENCOUNTER → 2024-11-29 11:34 | Outpatient (BNVA) | payer OTHER, SELFPAY | PROVIDERS: Visit Provider Physician Assistant | DX: M17.11 Unilateral primary osteoarthritis, right knee (principal) | CPT/HCPCS: 99212 ==

== ENCOUNTER 2025-01-01 09:49 | Outpatient (AMB) | payer OTHER, SELFPAY ==
--- NOTE | 2025-01-01 09:55 | MHC.OFFVIS ---
Intake Visit Reasons: OV-Right shoulder injury WC DOI 04/25/24 Intake Note: Shanta is a 54 year old right hand dominant female who presents today for a follow up of her workers comp injury to her right shoulder, DOI 04/25/24. At her last visit on 11/20/24 she was given an injection, instructed to continue attending physical therapy and follow up in 6-8 weeks. Today patient reports she is dong well, states injection provided her with relief. Current work restrictions of no lifting pushing pulling or carrying greater than 5 lb, as well as Limiting stair use and walking. Allergies acetaminophen (From Percocet) Allergy (Verified 01/01/25 09:58) Itchy oxycodone (From OxyContin) Allergy (Verified 01/01/25 09:58) itchy lavendar Allergy (Uncoded 01/01/25 09:58) headaches Medication List - Last Reconciled 01/01/25 by Justina Orr PA-C amlodipine 10 mg PO DAILY escitalopram oxalate mg PO hydrochlorothiazide 25 mg PO DAILY ibuprofen 800 mg PO Q8H PRN 30 days lisinopril 5 mg PO DAILY meclizine 25 mg PO Q12H PRN HPI HPI OV-Right shoulder injury WC DOI 04/25/24: Details: 54-year-old female returns to the office today for a follow-up right shoulder workman's comp injury dated 04/25/2024. I saw her back on 11/24 her right shoulder and performed a steroid injection which she states was significantly helpful. She has not returned to physical therapy for the right shoulder but does notice she has decreased strength on the right side. This does continues to cause limitations with daily activities. She has continued working with restrictions in place. 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 She does have weakness and pain associated with empty can. Assessment & Plan Assessment & Plan (1) Tendinitis of right rotator cuff: Code(s): M75.81 - Other shoulder lesions, right shoulder Category: Medical Plan: A new order for physical therapy has been placed to work on strengthening exercises. She will continue with her current work restrictions and see me back in 6 weeks with anticipation of full duty no restrictions. Coding Level of Care Code Est Pt Level 3 (42090) Complex EM visit Add On G2211 Diagnoses Tendinitis of right rotator cuff M75.81
--- OUTSIDE RECORDS SUMMARY | 2025-01-01 10:46 | XMS_ITS | Clinical Summary ---
Author Organization [facility] [address] [facility] Address [address] [place] [address] Phone Care Team Providers Care Reproduction Artist Name Role Phone Kelechi Haney Primary Care Provider [phone] Allergies Active Allergy Reactions Criticality Noted Date [...] by the office 2 tablet 5 Active Social History Tobacco Use Types Packs/Day Years [...] 2018 Zoster Vaccines (1 of 2) 2018 Colorectal Cancer Screening: Colonoscopy 01/24/2024 HIV Screening 01/24/2024 Hepatitis C Screening 01/24/2024 Social Influencers of Health Screening 01/24/2024 Depression Screening 04/03/2024 COVID-19 Vaccine (2023-2 5 season) 2024 Influenza Vaccine (#1) 2024 HIB Vaccines Aged [...] patient's age to complete this topic Insurance [facility] Care Teams Reproduction Artist Relationship Specialty Start Date End Date Kelechi Haney PA PCP - General Internal Medicine 06/19/24
== END 2025-01-01 10:18 | disposition home or self-care (01) ==
LOC: HO.HOS 09:50
PROVIDERS: Visit Provider Physician Assistant
DX: M75.81 Other shoulder lesions, right shoulder (principal)
CPT/HCPCS: 99213; G2211

== ENCOUNTER → 2025-01-01 09:49 | Outpatient (BNVA) | payer OTHER, SELFPAY | PROVIDERS: Visit Provider Physician Assistant | DX: M75.81 Other shoulder lesions, right shoulder (principal) | CPT/HCPCS: 99212 ==

== ENCOUNTER 2025-02-12 15:15 | Outpatient (AMB) | payer OTHER, SELFPAY ==
--- OUTSIDE RECORDS SUMMARY | 2024-05-08 03:40 | XMS_ITS ---
Author Organization [facility] Address [address], [place] [id number] Care Team Providers Care Manufacturing Operations Manager Name Role Phone PASQUALE NOVAK Primary Care Provider [phone] REASON FOR VISIT No show # 4 Encounters Encounter Location Date Provider Diagnosis [facility] [address] [place] [address] 05/08/2024 PASQUALE NOVAK PLAN OF TREATMENT No Information
--- OUTSIDE RECORDS SUMMARY | 2024-05-09 10:00 | XMS_ITS ---
Author Organization [facility] Address [address] [place], [place] [id number] Care Team Providers Care Manager Image Name Role Phone PASQUALE NOVAK Primary Care Provider [phone] BRE López Unavailable REASON FOR VISIT SA/CPX Encounters Encounter Location Date Provider Diagnosis [facility] [address] [place] [id number] 05/09/2024 BRE López PLAN OF TREATMENT No Information
--- OUTSIDE RECORDS SUMMARY | 2024-06-06 06:17 | XMS_ITS ---
Author Organization [facility] Address [address] [place], [place] [id number] Care Team Providers Care Reading Specialist Name Role Phone PASQUALE NOVAK Primary Care Provider REASON FOR VISIT Multi refills MEDICATIONS Medication SIG (Take, Route, Frequency, Duration) Notes Start Date End Date Status Lisinopril 5 MG 1 tab(s) Orally Once a day for 90 days Active amLODIPine Besylate 10 MG 1 tab(s) Orall y Once a day for 90 days Active Escitalopram Oxalate 10 MG take 1.5 tabs daily for 90 days Active hydroCHLOROthiazide 25 MG 1 tab(s) Orall y Once a day for 90 days Active Encounters Encounter Location Date Provider Diagnosis [facility] [address] [place] [address] 06/06/2024 PASQUALE NOVAK Anxiety F41.9 ASSESSMENTS Encounter Date Diagnosis Assessment Notes Treatment Notes Treatment Clinical Notes Section Notes 06/06/2024 Anxiety (ICD-10 - F41.9) PLAN OF TREATMENT Medication Medication Name Sig Start Date Stop Date Notes Lisinopril 5 MG 1 tab(s) Orally Once a day for 90 days amLODIPine Besylate 10 MG 1 tab(s) Orall y Once a day for 90 days Escitalopram Oxalate 10 MG take 1.5 tabs daily for 90 days hydroCHLOROthiazide 25 MG 1 tab(s) Orall y Once a day for 90 days
--- OUTSIDE RECORDS SUMMARY | 2024-06-06 09:04 | XMS_ITS ---
Author Organization [facility] Address [address] [place], [place] [id number] Care Team Providers Care Septic Technician Name Role Phone PASQUALE NOVAK Primary Care Provider REASON FOR VISIT Review MRI/xray reports Encounters Encounter Location Date Provider Diagnosis [facility] [address] [place] [address] 06/06/2024 PASQUALE NOVAK PLAN OF TREATMENT No Information
--- OUTSIDE RECORDS SUMMARY | 2024-06-13 08:00 | XMS_ITS ---
Author Organization [facility] Address [address] [place], [place] [phone] Care Team Providers Care Supervisor [employer] Name Role Phone PASQUALE NOVAK Primary Care Provider ALLERGIES Allergen (clinical drug ingredient) Drug/Non Drug Allergy documented on EMR Reaction Allergy Type Onset Date Status KEFLEX (uncoded) rash Allergy Act joe amoxicillin Amoxicillin rash Drug Allergy Act joe acetaminophen / oxycodone Percocet Unknown Drug Allergy Active B12 stomach upset Drug Allergy Act joe REASON FOR REFERRAL Reason 06/14/24 w appt Over due for initial screening colonoscopy has never had 1 or other colon screening. Diagnosis 1 Screening for malign ant neoplasm of colon (Z12.11) Referral Organization [facility] Referring Provider First Name PASQUALE Referring Provider Last Name SCARLET Referring Provider Speciality Internal M edicine Referred Provider DOMINIQUE MAYS Referred Provider Specialty Gastroentero logy General Notes La MENSAH Admin 11:02:07 AM > Faxed medical referral, note and most recent labs to [phone]>no referral required with pt's insurance plan>doctor is in network with [facility] Referral Priority Routine REASON FOR VISIT CPX MEDICATIONS Medication SIG (Take, Route, Frequency, Duration) Notes Start Date End Date Status Escitalopram Oxalate 10 MG take 1.5 tabs daily for 90 days Active hydroCHLOROthiazide 25 MG 1 tab(s) Orall y Once a day for 90 days Active Lisinopril 5 MG 1 tab(s) Orally Once a day for 90 days Active amLODIPine Besylate 10 MG 1 tab(s) Orall y Once a day for 90 days Active SOCIAL HISTORY Tobacco Use: Social History Observation Description Date Details (start date - stop date) Never Smoker NA - NA Sex Assigned At : Social History Observation Description Sex Assigned At Unknown Smoking Question Answer Notes Are you a: never smoker Section Notes: never smoked VITAL SIGNS Height 59.5 in 06/13/2024 Weight 185.4 lbs 06/13/2024 Blood pressure systolic 138 mm Hg 06/14/19 25 Blood pressure diastolic 88 mm Hg 025 BMI 36.82 kg/m2 06/13/2024 Encounters Encounter Location Date Provider Diagnosis [facility] [address] [place] [address] 06/13/2024 PASQUALE NOVAK Encounter for genera l adult medical examination without abnormal findings Z00.00 ; Encounter for screening, unspecified Z13.9 ; Essential hypertension I10 ; Gastroesophageal reflux disease without esophagitis K21.9 ; Anxiety associated with Depression F41.8 ; Encounter for screening mammogram for malignant neoplasm of breast Z12.31 and Screening for malignant neoplasm of colon Z12.11 ASSESSMENTS Encounter Date Diagnosis Assessment Notes Treatment Notes Treatment Clinical Notes Section Notes 06/13/2024 Encounter for general adult medical examination without abnormal findings (ICD-10 - Z00.00) Physical in 1 year. Up-to-date with flu and tetanus immunizations. Will consider shingles vaccine. Will consider updated COVID-vaccine. Mammogram ordered. Referral to GI for screening colonoscopy placed. 06/13/2024 Encounter for screening, unspecified (ICD-10 - Z13.9) Labs ordered. 06/13/2024 Essential hypertension (ICD-10 - I10) Labs ordered. Borderline controlled today. Continue hydrochlorothiazide 25 mg daily, lisinopril 5 mg daily and amlodipine 10 mg daily. Discussed diet, exercise and weight loss. Recheck in 3 months. 06/13/2024 Gastroesophageal reflux disease without esophagitis (ICD-10 - K21.9) Labs ordered. No recent flares. Not on any medication. Discussed GERD diet. Will continue to monitor. 06/13/2024 Anxiety associated with Depression (ICD-10 - F41.8) Labs ordered. Continue escitalopram 10 mg 1-1/2 tablets daily. Doing well with this. Currently stable. Will continue to monitor and recheck in 6 months. 06/13/2024 Encounter for screening mammogram for malignant neoplasm of breast (ICD-10 - Z12.31) Overdue for mammogram and order placed and faxed to [facility]. 06/13/2024 Screening for malignant neoplasm of colon (ICD-10 - Z12.11) Referral to GI placed for screening colonoscopy. PLAN OF TREATMENT Treatment Notes Assessment Notes Encounter for general adult medical examination without abnormal findings Physical in 1 year. Up-to-date with flu and tetanus immunizations. Will consider shingles vaccine. Will consider updated COVID-vaccine. Mammogram ordered. Referral to GI for screening colonoscopy placed. Encounter for screening, unspecified Lab s ordered. Essential hypertension Labs ordered. Bor derline controlled today. Continue hydrochlorothiazide 25 mg daily, lisinopril 5 mg daily and amlodipine 10 mg daily. Discussed diet, exercise and weight loss. Recheck in 3 months. Gastroesophageal reflux dise ase without esophagitis Labs ordered. No recent flares. Not on a ny medication. Discussed GERD diet. Will continue to monitor. Anxiety associated with Depression Labs ordered. Continue escitalopram 10 mg 1-1/2 tablets daily. Doing well with this. Currently stable. Will continue to monitor and recheck in 6 months. Encounter for screening mamm ogram for malignant neoplasm of breast Overdue for mammogram and order placed a nd faxed to [facility]. Screening for malignant neoplasm of colo n Referral to GI placed for screening colonoscopy. Pending Test Test Name Order Date Mammogram Screening Bilatera l, Perform ultrasound guided aspiration and/or breast biopsy if warranted 06/13/2024 Referrals Referral Date Details 06/14/24 w appt Over due for initial screening colonoscopy has never had 1 or other colon screening., DOMINIQUE MAYS Next Appt Details Follow Up: Labs ordered. Adriana mogram ordered and faxed to [facility]. Referral to GI for screening colonoscopy. Continue current medications. Follow- up in 6 months for recheck on blood pressure and medication. Return sooner as needed., Reason: Progress Notes * Examination Category Sub-Category Detail Notes Category Not es General Examination HEENT: NC/AT, EOMI,PERRL Neck: supple, no lymphaden opathy, no thyromegaly, no carotid bruit, JVP flat Heart: RRR, no murmurs, cli cks or rubs, normal S1S2 Lungs: clear to auscultatio n Abdomen: soft, non tender/non distended, no masses palpated, no hepatosplenomegaly, normal active bowel sounds Extremities: normal ROM, no clubb ing , cyanosis, or edema General Appearance no apparent distress , pleasant, obese Skin: normal, no rash Neuro alert and oriented x 3, gait normal, CN 2-12 intact, motor 5/5 bilaterally proximally and distally in all 4 extremities, no focal abnormality Oral cavity: no lesions Back: normal ROM of spine, no CVA tenderness, no spinal tenderness History and Physical Notes * HPI (History of Present Illness) Category Sub-Category Detail Notes Category Not es 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 vaginal bleeding vaginal discharge General Endocrine fatigue appetite change cold intolerence temperature intolerance General Pulmonary cough shortness of breath wheezing orthopnea paroxysmal nocturnal dyspnea difficulty breathing General Cardiology chest pain palpitations dizziness edema diaphoresis dyspnea on exertion lightheadedness General Neurology headache parasthesia dizziness Tingling numbness memory loss General Dermatology rash General Gastroenterology vomiting abdominal pain diarrhea nausea heartburn blood in stool melena general ENT sore throat hearing loss ear pain post nasal drip nasal congestion ear(s) blocked General Dysuria Frequency hematuria urgency General Fever Patient here fo r physical. Patient was last seen in the office March 05, 2024 for evaluation of shortness of breath and earache with diagnosis of sinusitis and perforation of the left TM. Prior to that was seen on December 27, 2023 for transfer of care. Patient with history of hypertension, GERD, anxiety with depression, obesity, fatty liver. History of alcohol use but states has not had any alcohol in the last 8 months and states that she feels better since stopping. She has not been getting much exercise of late as she is still dealing with issues from a Workmen's Comp. injury a couple months ago where she fell at work and has an injury to her right shoulder and right knee. She continues to see [facility] and has been referred to client delivery specialist for further evaluation. She otherwise has no acute complaints or concerns. Blood pressure is borderline today. She is currently on hydrochlorothiazide 25 mg once a day, lisinopril 5 mg once a day and amlodipine 10 mg daily for her blood pressure. Tolerating medications well. She is on escitalopram 10 mg 1-1/2 tablets daily for anxiety and depression and this seems to be helping. Denies any issues with headaches, chest pain, shortness of breath, abdominal pain, weakness, dizziness, numbness, tingling, blood per rectum, black or tarry stools or any urinary issues. She does not see gynecology since she had her hysterectomy. She is overdue for mammogram. She has never had a colonoscopy or colon cancer screening. She is up-to-date with flu and tetanus immunizations. Has had 3 COVID vaccines. Has not had shingles vaccine. Fatigue annual physical Labs reviewed with devan alva, Chart reviewed General Ophthalmology vision changes pain blurry vision loss of vision Consultation Request Notes Referral Date Referring Provider Referred Provider Not es 06/13/2024 PASQUALE NOVAK JOANNA 06/14/24 w appt Overdue for initial screening colonoscopy has never had 1 or other colon screening.
--- OUTSIDE RECORDS SUMMARY | 2024-08-12 06:43 | XMS_ITS ---
Author Organization [facility] Address [address] [place], [place] [phone] Care Team Providers Care Legal Mediator Name Role Phone PASQUALE NOVAK Primary Care Provider [phone] REASON FOR VISIT Meclizine rx MEDICATIONS Medication SIG (Take, Route, Fr equency, Duration) Notes Start Date End Date Status Meclizine HCl 25 MG 1 tablet as needed O rally every 12 hrs for 30 days 03/23/2023 Active Encounters Encounter Location Date Provider Diagnosis [address] [address] 08/12/2024 PASQUALE NOVAK Vertigo R42 ASSESSMENTS Encounter Date Diagnosis Assessment Notes Treatment Notes Treatment Clinical Notes Section Notes 08/12/2024 Vertigo (ICD-10 - R42) PLAN OF TREATMENT Medication Medication Name Sig Start Date Stop Date Notes Meclizine HCl 25 MG 1 tablet as needed O rally every 12 hrs for 30 days 03/23/2023
--- OUTSIDE RECORDS SUMMARY | 2024-12-16 10:48 | XMS_ITS ---
Author Organization [facility] Address [address], [place] [id number] Care Team Providers Care Juice Packaging Machines Setter Name Role Phone PASQUALE NOVAK Primary Care Provider [phone] REASON FOR VISIT rescheduled appt Encounters Encounter Location Date Provider Diagnosis [facility] [address] [place] [address] 12/16/2024 PASQUALE NOVAK PLAN OF TREATMENT No Information
--- OUTSIDE RECORDS SUMMARY | 2024-12-17 09:20 | XMS_ITS ---
Author Organization [facility] Address [address], [place] [id number] Care Team Providers Care Hydrotechnical Specialist Name Role Phone PASQUALE NOVAK Primary Care Provider REASON FOR VISIT PG/6mo f/u bp Encounters Encounter Location Date Provider Diagnosis [facility] [address] [place] [address] 12/17/2024 PASQUALE NOVAK PLAN OF TREATMENT No Information
--- OUTSIDE RECORDS SUMMARY | 2024-12-23 11:06 | XMS_ITS ---
Author Organization [facility] Address [address], [place] [id number] Care Team Providers Care Board Of Education Secretary Name Role Phone PASQUALE NOVAK Primary Care Provider [phone] REASON FOR VISIT cancelled appt tomorrow Encounters Encounter Location Date Provider Diagnosis [facility] [address] [place] [address] 12/23/2024 PASQUALE NOVAK PLAN OF TREATMENT No Information
--- OUTSIDE RECORDS SUMMARY | 2024-12-24 10:20 | XMS_ITS ---
Author Organization [facility] Address [address], [place] [id number] Care Team Providers Care Customer Liaison Name Role Phone PASQUALE NOVAK Primary Care Provider [phone] REASON FOR VISIT 6mo f/u bp Encounters Encounter Location Date Provider Diagnosis [facility] [address] [place] [address] 12/24/2024 PASQUALE NOVAK PLAN OF TREATMENT No Information
--- NOTE | 2025-02-12 15:21 | A.OFFVIS_ITS ---
Intake Visit Reasons: OV-F/U Right shoulder injury DOI 04/25/24 Intake Note: Shanta is a 54 year old female who presents today as a follow up for her right shoulder injury DOI 04/25/24. At last visit on 01/01/25 we referred her to physical therapy and told the patient to continue with her work restrictions. At today's visit she states that she started physical therapy that has been helping, states that she still struggles however she is able to do more. States pain is less since her last visit. Allergies acetaminophen (From Percocet) Allergy (Verified 01/01/25 09:58) Itchy oxycodone (From OxyContin) Allergy (Verified 01/01/25 09:58) itchy lavendar Allergy (Uncoded 01/01/25 09:58) headaches Medication List - Last Reconciled 02/12/25 by Justina Orr PA-C amlodipine 10 mg PO DAILY escitalopram oxalate mg PO hydrochlorothiazide 25 mg PO DAILY ibuprofen 800 mg PO Q8H PRN 30 days lisinopril 5 mg PO DAILY meclizine 25 mg PO Q12H PRN HPI HPI OV-F/U Right shoulder injury DOI 04/25/24: Details: 54-year-old female returns to the office today for a follow-up right shoulder injury dated 04/25/2024. She has been working with physical therapy and sees a significant improvement in her function and pain. She continues to have some discomfort with excessive overhead reaching. 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 She has full range of motion in all planes with mild discomfort over the impingement arc. Assessment & Plan Assessment & Plan (1) Tendinitis of right rotator cuff: Code(s): M75.81 - Other shoulder lesions, right shoulder Category: Medical (2) Arthritis of right acromioclavicular joint: Code(s): M19.011 - Primary osteoarthritis, right shoulder Category: Medical Plan Patient will continue working with physical therapy and I stressed the importance of maintaining good posture and scap stabilization when she is performing range of motion of the shoulder or activities overhead. She will increase activities as tolerated. I did give her a return to work note without restrictions to begin the of the new year. If there is any questions or concerns going forward she will contact our office otherwise follow up as needed. Coding Level of Care Code Est Pt Level 3 (62882) Complex EM visit Add On G2211 Diagnoses Tendinitis of right rotator cuff M75.81 Arthritis of right acromioclavicular joint M19.011
--- OUTSIDE RECORDS SUMMARY | 2025-02-12 18:29 | XMS_ITS | Clinical Summary ---
Author Organization [facility] [address] [facility] Address [address] [place] [address] Phone Care Team Providers Care Semiautomatic Stitcher Operator Name Role Phone Kelechi Haney Primary Care Provider [phone] Allergies Active Allergy Reactions Criticality Noted Date [...] provided by the office 2 tablet Active Social History Tobacco Use Types Packs/Day Years Used Date Smoking Tobacco: Never Assessed Comments Unknown Sex and Gender Information Value Date Recorded Sex Assigned at Not on file Legal Sex Female 3:44 PM EDT Gender Identity Not on file Sexual Orientation Not on file Plan of Treatment Health Maintenance Due Date Last Done Comments Breast Cancer Screening 1968 Colorectal Cancer Screening: Colonoscopy 1968 DTaP,Tdap,and Td Vaccines (1 - Tdap) 01/01/1988 Hepatitis B Vaccines (1 of 3 - 19+ 3-dose series) 01/01/1988 Cervical Cancer Screening: P ap Smear 1989 Pneumococcal Vaccine: 50+ Ye ars (1 of 1 - PCV) 2018 Zoster Vaccines (1 of 2) 2018 HIV Screening 01/24/2024 Hepatitis C Screening 01/24/2024 Social Influencers of Health Screening 01/24/2024 Depression Screening 04/03/2024 COVID-19 Vaccine (1 - 2024-2 6 season) 2024 Influenza Vaccine (#1) 2024 RSV Immunization Adult Patie nts (1 - 1-dose 75+ series) 01/01/2044 HIB Vaccines Aged Out No longer eligi [...] patient's age to complete this topic Insurance [facility] Care Teams Semiautomatic Stitcher Operator Relationship Specialty Start Date End Date Kelechi Haney PA PCP - General Internal Medicine 06/19/24
--- OUTSIDE RECORDS SUMMARY | 2025-02-12 18:29 | XMS_ITS | Patient Health Record ---
Author Organization [facility] Address [address], [place] [id number] Care Team Providers Care Custom Home Installer Name Role Phone PASQUALE NOVAK Primary Care Provider BRE López [phone] ALLERGIES Allergen (clinical drug ingredient) Drug/Non Drug Allergy documented on EMR Reaction Allergy Type Onset Date Status KEFLEX (uncoded) rash Allergy Act joe amoxicillin Amoxicillin rash Drug Allergy Act joe acetaminophen / oxycodone Percocet Unknown Drug Allergy Active B12 stomach upset Drug Allergy Act joe REASON FOR REFERRAL Reason [facility] 1 Vertigo (R42) Referral Organization [facility] Referring Provider First Name PASQUALE Referring Provider Last Name SCARLET Referring Provider Speciality Internal M edicine General Notes PASQUALE NOVAK 02/26 08:13:24 AM > patient with vertigo symptoms needing vestibular rehab. Please fax to [facility] rehab., Christina MENSAH MA 02/28/2024 08:30:31 AM > referral and mri faxed to [facility] (F) [phone], fwd to RODRICK Thorne Natalie G MA 03/07/2024 09:48:51 AM > Spoke to pt, Pt appt 03/11/24 at [facility] re[facility] , La MENSAH 05/09/2024 10:31:10 AM > [facility] in network with pt;s insurance>no referral required>encounter closed Referral Priority Routine Referral Appointment Date 03/11/2024 Reason 03/06/24 w appt Left TM with perforation at 9 o'clock position. Diagnosis 1 Perforation of left tympanic membrane (H72.92) Referral Organization [email or web address] Referring Provider First Name PASQUALE Referring Provider Last Name NOVAK Referring Provider Speciality Internal edicine Referred Provider Specialty Otology, Lar yngology, Rhinology General Notes PASQUALE NOVAK 03/05 02:42:56 PM > cold symptoms for the last 3 weeks and then sudden increase in pain in left ear and around the ear. Exam shows perforation of left TM at the 9 o'clock position. Ear canal showed some moisture but no active drainage from the perforation. No obvious bleeding., La MENSAH P Admin 03/06/2024 11:11:42 AM > per [facility] protocol medical referral, labs and notes have been faxed urgently to [phone]>NO REFERRAL REQUIRED>facility is in network with [facility] Referral Priority Urgent Reason 06/14/24 w appt Over due for initial screening colonoscopy has never had 1 or other colon screening. Diagnosis 1 Screening for malign ant neoplasm of colon (Z12.11) Referral Organization [email or web address] Referring Provider First Name PASQUALE Referring Provider Last Name SCARLET Referring Provider Speciality Internal edicine Referred Provider DOMINIQUE MAYS Referred Provider Specialty Gastroentero logy General Notes La MENSAH P Admin 11:02:07 AM > Faxed medical referral, note and most recent labs to [phone]>no referral required with pt's insurance plan>doctor is in network with [facility] Referral Priority Routine MEDICATIONS Medication SIG (Take, Route, Frequency, Duration) Notes Start Date End Date Status Meclizine HCl 25 MG TAKE 1 TABLET BY HITESH TH EVERY 12 HOURS NEEDED FOR 30 DAYS *PLAN EXCLUSION OTC for 30 Active Escitalopram Oxalate 10 MG take 1.5 tabs daily for 90 days Active amLODIPine Besylate 10 MG TAKE 1 TABLET BY MOUTH EVERY DAY FOR 90 DAYS for 90 Active hydroCHLOROthiazide 25 MG TAKE 1 TABLET BY MOUTH EVERY DAY FOR 90 DAYS for 90 Active Lisinopril 5 MG TAKE 1 TABLET BY HITESH TH EVERY DAY FOR 90 DAYS for 90 Active IMMUNIZATIONS Vaccine Route Administration Date Status Comme nts TDAP IM Intramuscular 09/19/2020 Administered Moderna COVID-19 mRNA LNP-S PF IM Intramuscular 06/23/2020 Administered 1st Dose Lot#: [id number] Carol Ann COVID-19 mRNA LNP-S PF IM Intramuscular 07/15/2020 Administered see docs Influenza, Fluzone QUAD, 3+ yrs, IM Intramuscular 02/21/2018 Administered Influenza, Flucelvax IM Intramuscular 03/23/2023 Administered Influenza, Flublok IM Intramuscular 12/27/2023 Administere d SOCIAL HISTORY Tobacco Use: Social History Observation Description Date Details (start date - stop date) Never Smoker NA - NA Sex Assigned At : Social History Observation Description Sex Assigned At Unknown Smoking Question Answer Notes Are you a: never smoker Section Notes: never smoked never smoked never smoked never smoked never smoked never smoked never smoked never smoked never smoked never smoked never smoked never smoked never smoked never smoked PROBLEMS Problem Type ICD Code Onset Dates Problem Status W/U Status Risk SNOMED Code Notes Problem Essential hypertension (I10) Active confirmed 63882521 Problem Anxiety associated with Depression (F41.8) Active confirmed 191596324 Problem Alcohol dependence with unspecified alcohol-induced disorder (F10.29) Active confirmed 568049706048838 Problem Tinnitus, bilateral (H93.13) Active confirmed 9653804760635 Problem Gastroesophageal reflux disease without esophagitis (K21.9) Active confirmed 308275690 Problem Anxiety (F41.9) Active confirmed 489970 02 Problem Vertigo (R42) Active confirmed 31689888 1 Problem BMI 39.0-39.9,adult (Z68.39) Active confirmed 770591155 Problem Hepatic steatosis (K76.0) Active confirmed 477204179 Problem Loss of balance (R26.89) Active confirmed 301494992 Problem Mild depression (F32.0) Active confirmed 104400301 VITAL SIGNS Blood pressure diastolic 88 mm Hg 06/13/2024 Height 59.5 in 06/13/2024 Blood pressure systolic 138 mm Hg 06/13/2024 Weight 185.4 lbs 06/13/2024 BMI 36.82 kg/m2 06/13/2024 Encounters Encounter Location Date Provider Diagnosis [facility] [address] [place] [address] 02/28/2024 PASQUALE NOVAK [facility] [address] [place] [address] 02/28/2024 PASQUALE NOVAK [facility] [address] [place] [address] 03/04/2024 PASQUALE NOVAK [address] [address] 03/05/2024 PASQUALE NOVAK Perforation of left tympanic membrane H72.92 and Acute sinusitis, recurrence not specified, unspecified location J01.90 [facility] [address], [place] [id number] 03/07/2024 PASQUALE NOVAK [facility] [address] [place] [address] 03/14/2024 PASQUALE NOVAK [address] [address] 03/14/2024 PASQUALE NOVAK [address] [address] 05/07/2024 PASQUALE NOVAK [address] [address] 05/07/2024 PASQUALE NOVAK [place] [phone] 05/08/2024 PASQUALE NOVAK [address] [address] 05/09/2024 BRE López [address] [address] 06/06/2024 PASQUALE NOVAK Anxiety F41.[address] [address] 06/06/2024 PASQUALE NOVAK [address] [address] 06/13/2024 PASQUALE NOVAK Encounter for genera l adult medical examination without abnormal findings Z00.00 ; Encounter for screening, unspecified Z13.9 ; Essential hypertension I10 ; Gastroesophageal reflux disease without esophagitis K21.9 ; Anxiety associated with Depression F41.8 ; Encounter for screening mammogram for malignant neoplasm of breast Z12.31 and Screening for malignant neoplasm of colon Z12.[address] [address] 08/12/2024 PASQUALE NOVAK Vertigo R42 [address] [address] 12/16/2024 PASQUALE NOVAK [address] [address] 12/17/2024 PASQUALE NOVAK [address] [address] 12/23/2024 PASQUALE NOVAK [address] [address] 12/24/2024 PASQUALE NOVAK ASSESSMENTS Encounter Date Diagnosis Assessment Notes Treatment Notes Treatment Clinical Notes Section Notes 03/05/2024 Acute sinusitis, recurrence not specified, unspecified location (ICD-10 - J01.90) Saline nasal sprays 2 sprays each nostril 4-6 times a day. Salt water gargles. Throat lozenges. Get humidifier vaporizer going at nighttime. Plenty of liquids. Ibuprofen as needed. Follow-up if no improvement in 10 to 14 days, sooner if worsening. 03/05/2024 Perforation of left tympanic membrane (ICD-10 - H72.92) Doxycycline 100 mg 1 tablet twice a day for 10 days. Warm compresses to the ear. Keep your covered when outside. No Q-tips or other objects in the ear. Referral for ENT placed. 06/06/2024 Anxiety (ICD-10 - F41.9) 06/13/2024 Encounter for general adult medical examination without abnormal findings (ICD-10 - Z00.00) Physical in 1 year. Up-to-date with flu and tetanus immunizations. Will consider shingles vaccine. Will consider updated COVID-vaccine. Mammogram ordered. Referral to GI for screening colonoscopy placed. 06/13/2024 Encounter for screening, unspecified (ICD-10 - Z13.9) Labs ordered. 08/12/2024 Vertigo (ICD-10 - R42) 06/13/2024 Essential hypertension (ICD-10 - I10) Labs [...] mammogram and order placed and faxed to [facility]. 06/13/2024 Screening for malignant neoplasm of colon (ICD-10 - Z12.11) Referral to GI placed for screening colonoscopy. PLAN OF TREATMENT Pending Test Test Name Order Date Mammogram Diagnostic Right Breast, Perfo rm ultrasound if needed 08/31/2012 Mammogram, bilateral, screening 08/23/19 17 Mammogram, bilateral, screening 06/13/19 21 Mammogram, bilateral, screening 06/11/19 21 Mammogram R Breast Diagnostic w/US if Ne eded 06/12/2020 Mammogram Screening Bilatera l, Perform ultrasound guided aspiration and/or breast biopsy if warranted 06/13/2024 XR Knee Right 3 views 03/23/2023 XR Hand Right minimum 3 views 12/27/2023 MRA Head (Brain) with and without contra st 12/18/2023 CCOV19 (BRL) 08/08/2019 Future Test Test Name Order Date Mammogram, bilateral, screening 04/30/19 15 Mammogram Diagnostic Right Breast, Perfo rm ultrasound if needed 10/23/2014 CBC W/ AUTOMATED DIFF 05/14/2019 COMP. METABOLIC 05/14/2019 XR : SPINE CERVICAL min 4 views -SMA 02/2020 XR KNEE MIN 4 VIEWS RIGHT 09/18/2019 Mammogram Screening Bilatera l, Perform Breast US and/or US-guided aspiration and/or breast biopsy if warranted 05/04/2023 HEPATIC FUNCTION PANEL 06/05/2023 INFLUENZA A/B ANTIGEN(Nasopharyngeal Swa b) 01/16/2024 RSV VIRUS IMMUNO ASSAY 01/16/2024 Rapid Covid-19 01/16/2024 Insurance Providers Payer Name Payer Address Payer Phone Subscriber Number Group Number Insured Name Patient Relationship to Insured Coverage Start Date Coverage End Date [facility] [address] [place], [place] [id number] SAY DAVIS Self - patient is the insured 5 MEDICAL (GENERAL) HISTORY Medical History History ICD Code heart murmur (had echo in past, no abx r ecommended) lactose intolerant hypertension vertigo Surgical History Surgery Date(Month/Year) [facility], preserved ovaries 2009 ovarian bx X 2 Hospitalization History Reason Date(Month/Year) [facility]: ACS and CVA rule out 08/2018
--- OUTSIDE RECORDS SUMMARY | 2025-02-12 18:30 | XMS_ITS | Data Portability ---
Author Organization [place] - [facility], Allergy Address [address] [address] Care Team Providers Care Visual Merchandising Assistant Name Role Phone PASQUALE NOVAK Primary Care [...] INTERNAL AUDITORY CANAL, W/WO CONTRAST 2023 024 [email or web address] [facility] ([facility] [address] [place], [address], 5 11:24:43 Medication Orders None recorded. Patient [...] Time Benign paroxysma l positiona l vertigo [id number] Active 2016 Benign paroxysma l vertigo, left ear; Note: Date Diagnosed : 08/30/2016 3:32 PM (H81.12) Not Available [facility] 4 02:40:28 Dizziness and giddiness 444017934 Active 2016 Dizziness and giddiness ; Note: Date Diagnosed : 08/30/2016 3:29 PM (R42) Not Available [facility] 4 02:40:25 Sensorine ural hearing loss of bilateral ears 785541870 Active 2016 Sensorine ural hearing loss, bilateral ; Note: Date Diagnosed : 08/30/2016 3:29 PM (H90.3) Not Available [facility] 4 02:40:21 Bilateral tinnitus 18993832837 02 Active 2016 Tinnitus, bilateral ; Note: Date Diagnosed : 08/30/2016 3:29 PM (H93.13) Not Available [facility] 4 02:40:21 Sensorine ural hearing loss in left ear 68323457281 109 Active 2023 Kezia mathis [place] - [facility] 4 14:01:30 Tinnitus of left ear 53884979509 06 Active 2023 JYOTHI COLON MD [address] [place] [address],[place] [address], [place], [address] , [place] - [facility] 4 14:55:42 Referred otalgia of left ear 30613115350 40227 Active 2023 JYOTHI COLON MD [address] [place] [address],[place] [address], [place], [address] , [place] - [facility] 4 14:56:16 Problem Notes None recorded. Procedures Surgical History Date Name Laterality Status Provider Name and Address Organization Details Recorded Time 03/21/20 24 Air & Speech Audio with Tymps - 32212, 45558 & 26226 completed Kezia Jara [place] - [facility] 03/21/2024 14:00:59 biopsy of ovary completed Elodia Winston [place] - [facility] 03/21/2024 14:26:29 section completed Elodia Winston [place] - [facility] 03/21/2024 14:26:35 Hysterectomy completed Elodia Winston [place] - [facility] 03/21/2024 14:26:41 Imaging Results None recorded. Procedure Notes None recorded. Medical Equipment None Reported. Allergies Allergen ID Allergen Name Allergen Category Reaction Reaction Severity Criticality Documentation Date Start Date Code Code System Note Provider Name and Address Organization Details Recorded Time 200832 amoxicill in medicatio n Not available Not available Not available 03/21/2024 723 RxNorm Elodia mathis, [place] - [facility] 4 14:27:38 882422 Keflex medicatio n Not available Not available Not available 03/21/2024 00140 7 RxNorm Elodia mathis, [place] - [facility] 4 14:27:43 897871 acetamino phen / oxycodone medicatio n Not available Not available Not available 03/21/2024 75444 3 RxNorm Elodia mathis, [place] - [facility] 4 14:27:49 267503 vitamin B12 medicatio n Not available Not available Not available 03/21/2024 29589 RxNorm Elodia mathis, [place] - [facility] 4 14:27:55 Medications Name Sig Start [...] Details Last Updated DateTime 03/21/2024 149.86 cm 90499.[address] - [facility] 03/21/2024 14:42:33 Social History None recorded. Functional Status None recorded. Mental Status None recorded. Family History Nothing Reported. Medical History Condition Response Anxiety Y Depression Y Hypertension Y Gynecological HistoryNo gynecological history recorded. Obstetrics History GPAL:G 0 P 0 0 0 0 Past Encounters Encounter ID Performer Location Encounter Start Date Encounter Closed Date Diagnosis/Indication Diagnosis SNOMED-CT Code Diagnosis ICD10 Code Diagnosis IMO Codes Diagnosis Note [id number] JYOTHI COLON MD [facility] [address] [address] 03/21/2024 13:27:27 03/21/2024 14:58:41 Sensorineural hearing loss in left ear [id number] 9109 H90.42 Audiologic al evaluation results:Ri ght [...] discuss the results. Tinnitus of left ear 592 9357560 106 H93.12 Referred o talgia of left ear 7764827178 814822 H92.02 M26.622 M79.11 The patient complains of [...] ID Kirkpatrick Member ID Guarantor Name 03/21/[address] [place] [address] [id number] Shanta Zeng [id number] Shanta Zeng Notes Date Note Type Note [...] ear greater than right JYOTHI COLON MD [address] [place] [address], [place], [address], [place] - [facility] 03/21/2024 14:58:58 OBGyn Episode No OBEpisode recorded.
== END 2025-02-12 15:44 | disposition home or self-care (01) ==
LOC: HO.HOS 15:16
PROVIDERS: Visit Provider Physician Assistant
DX: M19.011 Primary osteoarthritis, right shoulder (principal); M75.81 Other shoulder lesions, right shoulder
CPT/HCPCS: 99213; G2211

== ENCOUNTER → 2025-02-12 15:15 | Outpatient (BNVA) | payer OTHER, SELFPAY | PROVIDERS: Visit Provider Physician Assistant | DX: M19.011 Primary osteoarthritis, right shoulder (principal); M75.81 Other shoulder lesions, right shoulder | CPT/HCPCS: 99212 ==